=== PATIENT | male | born 1960 | race Caucasian/White ===

== ENCOUNTER → 2017-12-30 | Outpatient (CLI) | payer BC ==
[2017-12-30 11:07] LABS: Appearance,Urine Clear (Clear); Bilirubin,Urine Negative (Negative); Blood,Urine Negative (Negative); Color,Urine Light Yellow; Glucose,Urine (UA) Negative (Negative); Ketones,Urine Negative (Negative); Leukocyte Esterase,Urine Negative (Negative); Nitrite,Urine Negative (Negative); PH, Urine 5.5 (5.0-8.0); Protein,Urine Negative (Negative); Specific Gravity,Urine 1.011 (1.001-1.035); Urobilinogen,Urine <2.0 mg/dL (<2.0)
[2017-12-30 11:08] LABS: Basophils % (A) 0 %; Eosinophils # (A) 0.1 k/uL (0-0.7); Eosinophils % (A) 3 %; HGB 14.6 gm/dL (13.0-17.5); Lymphocytes # (A) 1.4 k/uL (1.0-4.8); Lymphocytes % (A) 32 %; MCH 30.1 pg (25.0-35.0); MCHC 32.5 g/dL (31.0-37.0); MCV 92.5 fL (80.0-100.0); Mean Platelet Volume 8.5; Monocytes # (A) 0.3 k/uL (0-1.0); Monocytes % (A) 7 %; Neutrophils # (A) 2.5 k/uL (1.3-7.7); Neutrophils % (A) 56 %; Platelet Count 160 k/uL (150-450); RBC 4.86 m/uL (4.30-5.90); RDW 12.4 % (11.5-15.5); WBC 4.5 k/uL (3.8-10.6)
[2017-12-30 11:14] LABS: ALT 42 U/L (21-72); AST 25 U/L (17-59); Albumin 4.3 g/dL (3.5-5.0); Alkaline Phosphatase 45 U/L (38-126); Anion Gap 6 mmol/L; Blood Urea Nitrogen 20 mg/dL (9-20); Calcium 9.6 mg/dL (8.4-10.2); Carbon Dioxide 29 mmol/L (22-30); Chloride 105 mmol/L (98-107); Cholesterol 201 mg/dL (<200); Creatine Kinase 101 U/L (55-170); Glucose 106 mg/dL (74-99); HDL Cholesterol 55 mg/dL (40-60); LDL Cholesterol,Calculated 125 mg/dL (0-99); Potassium 4.7 mmol/L (3.5-5.1); Sodium 140 mmol/L (137-145); Total Bilirubin 0.5 mg/dL (0.2-1.3); Triglycerides 106 mg/dL (<150); Uric Acid 8.2 mg/dL (3.5-8.5)
[2017-12-30 11:30] LABS: T4, Free (Free Thyroxine) 0.95 ng/dL (0.78-2.19)
[2017-12-30 11:44] LABS: Prostate Specific Antigen 1.08 ng/mL (0.00-4.00)
[2017-12-30 19:44] LABS: Hemoglobin A1C 5.4 % (4.0-6.0)
== END | disposition home or self-care (01) ==
LOC: LABWHC1 09:42
PROVIDERS: ATTEND Internal Medicine
DX: Z00.00 Encounter for general adult medical examination without abnormal findings (principal); N40.1 Benign prostatic hyperplasia with lower urinary tract symptoms; E78.00 Pure hypercholesterolemia, unspecified; K63.5 Polyp of colon
CPT/HCPCS: 36415; 80053; 80061; 81003; 82550; 83036; 84153; 84439; 84443; 84550; 85025

== ENCOUNTER → 2018-04-13 | Outpatient (CLI) | payer BC ==
--- NOTE | 2018-04-13 12:54 | ECHOF ---
Referral Reason:Atrial Fibrillation I48 MEASUREMENTS -------- HEIGHT: 180.3 cm WEIGHT: 99.8 kg BP: 119/66 RVIDd: 2.4 cm (< 3.3) IVSd: 1.2 cm (0.6 - 1.1) LVIDd: 5.4 cm (3.9 - 5.3) LVPWd: 1.3 cm (0.6 - 1.1) IVSs: 1.5 cm LVIDs: 4.1 cm LVPWs: 1.3 cm LA Diam: 3.9 cm (2.7 - 3.8) Ao Diam: 3.6 cm (2.0 - 3.7) AV Cusp: 2.0 cm (1.5 - 2.6) LA Diam: 4.3 cm (2.7 - 3.8) MV EXCURSION: 20.477 mm (> 18.000) MV EF SLOPE: 131 mm/s (70 - 150) EPSS: 0.1 cm MV E Chad: 0.63 m/s MV DecT: 213 ms MV A Chad: 0.87 m/s MV E/A Ratio: 0.72 RAP: 5.00 mmHg RVSP: 35.72 mmHg FINDINGS -------- Sinus rhythm. This was a technically adequate study. The left ventricular size is normal. Left ventricular wall thickness is normal. Overall left vent ricular systolic function is low-normal with, an EF between 50 - 55 %. The right ventricle is normal in size. The right atrial size is normal. The aortic valve is trileaflet, and appears structurally normal. No aortic stenosis or regurgitation. Mild mitral annular calcification present. Mild mitral regurgitation is present. Mild tricuspid regurgitation present. There is no evidence of pulmonary hypertension. The right v entricular systolic pressure, as measured by Doppler, is 35.72mmHg. The pulmonic valve was not well visualized. The aortic root size is normal. There is no pericardial effusion. CONCLUSIONS -------- 1. The left ventricular size is normal. 2. Left ventricular wall thickness is normal. 3. Overall left ventricular systolic function is low-normal with, an EF between 50 - 55 %. 4. The right ventricle is normal in size. 5. The right atrial size is normal. 6. The aortic valve is trileaflet, and appears structurally normal. No aortic stenosis or regurgitati on. 7. Mild mitral annular calcification present. 8. Mild mitral regurgitation is present. 9. Mild tricuspid regurgitation present. 10. There is no evidence of pulmonary hypertension. 11. The right ventricular systolic pressure, as measured by Doppler, is 35.72mmHg. 12. The pulmonic valve was not well visualized. 13. The aortic root size is normal. 14. There is no pericardial effusion. DOG CATCHER: Marlee Trujillo RDCS
--- NOTE | 2018-04-13 13:55 | ECHOS ---
STRESS ECHOCARDIOGRAM DATE OF SERVICE: 04/13/2018 INDICATIONS: Atrial fibrillation. MEDICATIONS: BASELINE HEART RATE: 64 BASELINE BLOOD PRESSURE: 119/66 MAXIMUM HEART RATE: 146 MAXIMUM BLOOD PRESSURE: 210/67 85% MPHR: 139 100% MPHR: 164 METS: 12.1 MAXIMUM STAGE REACHED: IV TOTAL EXERCISE TIME: 10 minutes 30 seconds CLINICAL INFORMATION: Patient was exercised for a total period of 10 minutes and 30 seconds. Peak heart rate of 146 was achieved. Maximum blood pressure of 210/67 mmHg was noted. Resting EKG shows normal sinus rhythm with normal CT interval and QRS duration and normal ST-T waves. Occasional PVCs were noted. During exercise J-point depression with upsloping ST segments noted. The patient did not complain of any chest pain during the test. The baseline echocardiographic images reveals normal left ventricular chamber size with normal left ventricular systolic function. In the immediate postexercise period, normal increase in the wall thickness and contractility is noted. FINAL IMPRESSION: This stress echocardiographic study is negative for stress-induced ischemia. Occasional PVCs were noted in the resting stage. Patient did not complain of any chest pain during the test. MMODL / IJN: [id number] /
== END | disposition home or self-care (01) ==
LOC: RADNMMAIN 09:21
PROVIDERS: ATTEND Internal Medicine Interventional Cardiology
DX: I08.1 Rheumatic disorders of both mitral and tricuspid valves (principal); I48.91 Unspecified atrial fibrillation
CPT/HCPCS: 93306; 93351; Q9950

== ENCOUNTER → 2021-12-26 | Outpatient (CLI) | payer BC ==
--- NOTE | 2021-12-26 12:53 | CA ---
Transthoracic Echo Report Name: Ayan Thornton Age: 61 Gender: M : 1960 Exam Date: 12/26/2021 11:45 Exam Location: [facility] Ht (in): 71 Wt (lb): 205 Ordering Physician: Margoth Bradley MD Attending/Referring Phys: Continuous Crusher Operator Dara Peck RDCS Procedure CPT: Indications: I48.0 A FIB I26.99 Cardiac Hx: Hx of Afib, and pulmonary embolism. Technical Quality: Good Contrast 1: Total Dose (mL): Contrast 2: Total Dose (mL): MEASUREMENTS (Male / Female) Normal Values 2D ECHO LV Diastolic Diameter PLAX 4.4 cm 4.2 - 5.9 / 3.9 - 5.3 cm LV Systolic Diameter PLAX 2.5 cm IVS Diastolic Thickness 1.3 cm 0.6 - 1.0 / 0.6 - 0.9 cm LVPW Diastolic Thickness 1.2 cm 0.6 - 1.0 / 0.6 - 0.9 cm LV Relative Wall Thickness 0.6 RV Internal Dim ED PLAX 2.6 cm LV Diastolic Volume MOD BP 147.6 cm??? 67 - 155 / 56 - 104 cm??? LV Systolic Volume MOD BP 66.0 cm??? 22 - 58 / 19 - 49 cm??? LV Ejection Fraction MOD BP 55.3 % >= 55 % LV Diastolic Volume MOD 4C 174.2 cm??? LV Systolic Volume MOD 4C 73.3 cm??? LV Ejection Fraction MOD 4C 57.9 % LV Diastolic Length 4C 8.9 cm LV Systolic Length 4C 6.9 cm LV Diastolic Volume MOD 2C 112.4 cm??? LV Systolic Volume MOD 2C 59.4 cm??? LV Ejection Fraction MOD 2C 47.1 % LV Diastolic Length 2C 7.9 cm LV Systolic Length 2C 7.0 cm LA Volume 53.6 cm??? 18 - 58 / 22 - 52 cm??? M-MODE Aortic Root Diameter MM 3.6 cm LA Systolic Diameter MM 2.8 cm LA Ao Ratio MM 0.8 MV E Point Septal Separation 1.5 cm AV Cusp Separation MM 2.3 cm DOPPLER AV Peak Velocity 116.1 cm/s AV Peak Gradient 5.4 mmHg MR Peak Velocity 328.7 cm/s MR Peak Gradient 43.2 mmHg TR Peak Velocity 208.4 cm/s TR Peak Gradient 17.4 mmHg Right Ventricular Systolic Press 20.8 mmHg PV Peak Velocity 90.4 cm/s PV Peak Gradient 3.3 mmHg FINDINGS Left Ventricle Mildly increased septal wall thickness. Mildly increased left ventricular systolic volume. Left ventricular ejection fraction is estimated at 55-60 %. Right Ventricle The right ventricle is normal in size and function. Right Atrium The right atrium is normal in size. Left Atrium The left atrium is normal in size. Mitral Valve Structurally normal mitral valve without significant stenosis or prolapse. There is mild mitral regurgitation. Aortic Valve Structurally normal aortic valve without significant sclerosis or stenosis. There is no aortic regurgitation. Tricuspid Valve Structurally normal tricuspid valve without significant stenosis. Pulmonary artery systolic pressure is normal. Trace tricuspid regurgitation. Pulmonic Valve Structurally normal pulmonic valve without significant stenosis. There is no pulmonic regurgitation. Pericardium Normal pericardium without effusion. Aorta Normal aortic root dimension. CONCLUSIONS Normal left ventricular ejection fraction 55-60% Trace to mild mitral regurgitation Trace tricuspid regurgitation RVSP 20 No pericardial effusion Previewed by: Dr. Gumaro House DO (Electronically Signed) Final Date: 26 December 2021 12:53
== END | disposition home or self-care (01) ==
LOC: RADECHMAIN 11:44
PROVIDERS: ATTEND Internal Medicine
DX: I48.0 Paroxysmal atrial fibrillation (principal); I26.99 Other pulmonary embolism without acute cor pulmonale
CPT/HCPCS: 93306